=== PATIENT | male | born 1930 | race Caucasian/White ===

== ENCOUNTER 2018-04-25 17:18 | Inpatient (IN) | payer MEDICARE, OTHER ==
[~2018-04-25 17:18] MED LIST: ETOMIDATE 20 MG INJ; ROCURONIUM 50 MG INJ
[2018-04-25] MEDS: ASPIRIN 325 MG TAB PO (17:29)
[2018-04-25] MEDS: ONDANSETRON 4 MG INJ IV ×2 (17:36→17:49)
[2018-04-25 17:39] LABS: ADD MAN DIFF? NO
[2018-04-25 17:40] LABS: Allen Test ACCEPTAB; Arterial Base Excess 3.7 mmol/L (-3.0-3); Arterial Blood Gas Oxygen Sat 91.9 mmHG (95.0-100.0); Arterial COHb 2.2 % (0.0-3.0); Arterial Fraction of Oxyhgb 89.6 % (93.0-99.0); Arterial HCO3 31.5 mmol/L (22.0-26.0); Arterial MetHb 0.3 % (0.0-1.5); Arterial Total Hemglobin 14.7 g/dl (12.0-18.0); Arterial pCO2 60.9 mmhg (35-45); MODE MASK - NRB; Site Right Radial
[2018-04-25 17:42] LABS: WHITE BLOOD COUNT 8.2 10^3/ul (4.8-10.8)
[2018-04-25 17:42] LABS: BASOPHIL # 0.1 10^3/ul (0.0-0.1); BASOPHILS % 1.1 % (0.0-2.0); EOSINOPHILS # 0.1 10^3/ul (0.0-0.5); HEMOGLOBIN 13.7 g/dl (14.0-18.0); LYMPHOCYTES # 1.4 10^3/ul (0.8-2.9); LYMPHOCYTES % 17.5 % (15.0-51.0); MEAN CORPUSCULAR HEMOGLOBIN 28.8 pg (29.0-33.0); MEAN CORPUSCULAR HGB CONC 31.1 g/dl (32.0-37.0); MEAN CORPUSCULAR VOLUME 92.4 fl (82.0-101.0); MEAN PLATELET VOLUME 10.8 fl (7.4-10.4); MONOCYTE # 0.8 10^3/ul (0.3-0.9); MONOCYTES % 10.3 % (0.0-11.0); NEUTROPHIL # 5.7 10^3/ul (1.6-7.5); NEUTROPHILS % 69.7 % (39.0-77.0); PLATELET COUNT 200 10^3/UL (140-415); RED BLOOD COUNT 4.76 10^6/ul (4.70-6.10); RED CELL DISTRIBUTION WIDTH 19.8 % (11.5-14.5)
[2018-04-25 17:49] LABS: ANION GAP 16 (8-16); BLOOD UREA NITROGEN 29 mg/dl (7-20); CALCIUM 9.3 mg/dl (8.4-10.2); CARBON DIOXIDE 30 mmol/L (21-31); CHLORIDE 100 mmol/L (97-110); CREATININE 1.27 mg/dl (0.61-1.24); GLUCOSE 131 mg/dl (70-220); POTASSIUM 4.8 mmol/L (3.5-5.1); SODIUM 141 mmol/L (135-144)
[2018-04-25] MEDS: SOD CHLORIDE 0.9% 500 ML IV (17:49)
[2018-04-25 18:01] LABS: B-TYPE NATRIURETIC PEPTIDE 5860 PG/ML (0-450); TROPONIN-I 0.057 ng/ml (0.000-0.120)
[2018-04-25 19:09] LABS: AADO2 Arterial 431.9 mmHg (7.0-24.0); Arterial Base Excess 1.6 mmol/L (-3.0-3); Arterial Blood Gas Oxygen Sat 85.5 mmHG (95.0-100.0); Arterial Fraction of Oxyhgb 83.6 % (93.0-99.0); Arterial HCO3 31.1 mmol/L (22.0-26.0); Arterial MetHb 0.2 % (0.0-1.5); Arterial Total Hemglobin 14.4 g/dl (12.0-18.0); Blood Gas IEPAP 15/5; MODE MASK - BIPAP; Site Right Brachial
[2018-04-25] MEDS: MIDAZOLAM (DRIP) 50 mg/50 mL 50 ML IV ×2 (20:14→22:25)
[2018-04-25] MEDS: FENTAnyl (DRIP) 1000 mcg/100mL 100 ML IV ×2 (20:32→22:25)
[2018-04-25 20:34] LABS: AADO2 Arterial 584.7 mmHg (7.0-24.0); Allen Test ACCEPTAB; Arterial Base Excess 4.5 mmol/L (-3.0-3); Arterial Blood Gas Oxygen Sat 96.9 mmHG (95.0-100.0); Arterial Fraction of Oxyhgb 94.7 % (93.0-99.0); Arterial HCO3 28.7 mmol/L (22.0-26.0); Arterial MetHb 0.3 % (0.0-1.5); Arterial Total Hemglobin 14.7 g/dl (12.0-18.0); Arterial pCO2 41.4 mmhg (35-45); Blood Gas Low PEEP Setting 0 cmH2O; MODE VENT - AC; Site Right Radial
[2018-04-25] MEDS ORDERED: DOCUSATE SODIUM 100 MG CAP PO (21:00)
[2018-04-25] MEDS ORDERED: VANCOMYCIN IV PER PHARMACY XX (21:00)
[2018-04-25] MEDS ORDERED: ALBUTEROL/IPRATROPIUM (NEB) 3 ML AMP NEB (21:00)
[2018-04-25] MEDS ORDERED: ACETAMINOPHEN 650MG/20.3ML CUP PO (21:00)
[2018-04-25] MEDS ORDERED: ONDANSETRON 4 MG INJ IV (21:00)
[2018-04-25] MEDS: NORepinephrine 8MG/250 ML (PMX 250 ML IV (22:08)
[2018-04-25] MEDS: PIPER-TAZO 3.375 GM IV (PMX) 100 ML IV (23:10)
[2018-04-25] MEDS: FUROSEMIDE 20 MG INJ IV (23:11)
[2018-04-25] MEDS: HEPARIN 5,000 UNIT/0.5 ML VIAL SC (23:20)
[2018-04-26 00:11] LABS: CREATINE KINASE 21 IU/L (23-200)
[2018-04-26 00:23] LABS: CK INDEX 19.5
[2018-04-26] MEDS: VANCOMYCIN 1.5 GM in SOD CHLORIDE 0.9% 250 ML IVPB (00:38)
[2018-04-26] MEDS: ALBUTEROL/IPRATROPIUM (NEB) 3 ML AMP NEB ×4 (00:56→14:20)
[2018-04-26 05:00] LABS: ADD MAN DIFF? NO
[2018-04-26] MEDS ORDERED: PENDING SANTYL ORDER FOR WOUND CARE XX (05:00)
[2018-04-26 05:02] LABS: BASOPHIL # 0.1 10^3/ul (0.0-0.1); BASOPHILS % 0.6 % (0.0-2.0); EOSINOPHILS # 0.1 10^3/ul (0.0-0.5); EOSINOPHILS % 1.6 % (0.0-7.0); HEMATOCRIT 41.8 % (42.0-52.0); HEMOGLOBIN 13.1 g/dl (14.0-18.0); LYMPHOCYTES # 1.4 10^3/ul (0.8-2.9); MEAN CORPUSCULAR HEMOGLOBIN 28.3 pg (29.0-33.0); MEAN CORPUSCULAR HGB CONC 31.3 g/dl (32.0-37.0); MEAN CORPUSCULAR VOLUME 90.3 fl (82.0-101.0); MEAN PLATELET VOLUME 10.6 fl (7.4-10.4); MONOCYTE # 0.8 10^3/ul (0.3-0.9); MONOCYTES % 10.5 % (0.0-11.0); NEUTROPHIL # 5.5 10^3/ul (1.6-7.5); NEUTROPHILS % 69.1 % (39.0-77.0); PLATELET COUNT 202 10^3/UL (140-415); RED BLOOD COUNT 4.63 10^6/ul (4.70-6.10); RED CELL DISTRIBUTION WIDTH 19.7 % (11.5-14.5)
[2018-04-26 05:28] LABS: CREATINE KINASE 20 IU/L (23-200)
[2018-04-26 05:30] LABS: ALANINE AMINOTRANSFERASE 28 IU/L (13-69); ALBUMIN 2.5 g/dl (3.3-4.9); ALBUMIN/GLOBULIN RATIO 0.73; ALKALINE PHOSPHATASE 85 IU/L (42-121); ANION GAP 12 (8-16); ASPARTATE AMINO TRANSFERASE 34 IU/L (15-46); BILIRUBIN,INDIRECT 0.6 mg/dl (0-1.1); BILIRUBIN,TOTAL 0.6 mg/dl (0.2-1.3); BLOOD UREA NITROGEN 29 mg/dl (7-20); CALCIUM 8.9 mg/dl (8.4-10.2); CARBON DIOXIDE 32 mmol/L (21-31); CHLORIDE 101 mmol/L (97-110); CREATININE 1.12 mg/dl (0.61-1.24); GLUCOSE 108 mg/dl (70-220); POTASSIUM 4.6 mmol/L (3.5-5.1); SODIUM 140 mmol/L (135-144); TOTAL PROTEIN 5.9 g/dl (6.1-8.1)
[2018-04-26] MEDS: PIPER-TAZO 3.375 GM IV (PMX) 100 ML IV ×4 (05:31→18:55)
[2018-04-26] MEDS: PANTOPRAZOLE 40 MG INJ IV (05:31)
[2018-04-26 05:38] LABS: LACTIC ACID 2.4 mmol/L (0.5-2.0)
[2018-04-26 05:38] LABS: CK INDEX 21.2; CK-MB 4.24 ng/ml (0.0-2.4)
[2018-04-26 05:39] LABS: TROPONIN-I 0.432 ng/ml (0.000-0.120)
[2018-04-26 05:53] LABS: ADD UMIC YES; UR ASCORBIC ACID 40 mg/dL (NEGATIVE); UR BACTERIA FEW /HPF (NONE SEEN); UR BILIRUBIN (Dip) NEGATIVE (NEGATIVE); UR BLOOD (Dip) 3+ mg/dL (NEGATIVE); UR CALCIUM OXALATE CRYSTAL FEW /HPF (NONE SEEN); UR CLARITY CLOUDY (CLEAR); UR COLOR AMBER (YELLOW); UR GLUCOSE (Dip) NEGATIVE (NEGATIVE); UR HYALINE CAST FEW /HPF (NONE SEEN); UR KETONES (Dip) NEGATIVE (NEGATIVE); UR LEUKOCYTE ESTERASE (Dip) NEGATIVE Leu/ul (NEGATIVE); UR MUCUS FEW /HPF (NONE SEEN); UR NITRITE (Dip) NEGATIVE (NEGATIVE); UR RBC > 182 /HPF (0-5); UR SPECIFIC GRAVITY (Dip) 1.013 (1.003-1.030); UR TOTAL PROTEIN (Dip) 1+ mg/dl (NEGATIVE); UR UROBILINOGEN (Dip) 1+ mg/dL (NEGATIVE); UR WBC 1 /HPF (0-5)
[2018-04-26 07:27] LABS: AADO2 Arterial 464.8 mmHg (7.0-24.0); Allen Test ACCEPTAB; Arterial Base Excess 5.8 mmol/L (-3.0-3); Arterial Blood Gas Oxygen Sat 90.1 mmHG (95.0-100.0); Arterial COHb 1.4 % (0.0-3.0); Arterial Fraction of Oxyhgb 88.7 % (93.0-99.0); Arterial HCO3 30.4 mmol/L (22.0-26.0); Arterial MetHb 0.2 % (0.0-1.5); Arterial Total Hemglobin 14.3 g/dl (12.0-18.0); Arterial pCO2 44.3 mmhg (35-45); MODE VENT - AC; Site Right Radial
[2018-04-26 08:50] LABS: MAGNESIUM 1.9 mg/dl (1.7-2.5)
[2018-04-26 08:50] LABS: PHOSPHORUS 4.5 mg/dl (2.5-4.9)
[2018-04-26] MEDS: ASPIRIN 325 MG TAB PO (09:18)
[2018-04-26] MEDS: HEPARIN 5,000 UNIT/0.5 ML VIAL SC ×2 (09:21→21:00)
[2018-04-26] MEDS: FUROSEMIDE 20 MG INJ IV ×2 (09:34→21:06)
[2018-04-26] MEDS: LIDOCAINE 1% (MPF) 5 ML VIAL SC (18:34)
[2018-04-26] MEDS: NORepinephrine 8MG/250 ML (PMX 250 ML IV (19:02)
[2018-04-26] MEDS: MIDAZOLAM (DRIP) 50 mg/50 mL 50 ML IV (19:02)
[2018-04-26] MEDS: ALBUTEROL HFA 8 GM INHALER INH (21:30)
[2018-04-26] MEDS: IPRATROPIUM (HFA) 12.9 GM INHALER INH (21:30)
[2018-04-26] MEDS ORDERED: VANCOMYCIN 1 GM 250 ML IVPB (23:00)
[2018-04-26] MEDS: VANCOMYCIN 1.25 GM in SOD CHLORIDE 0.9% 250 ML IVPB (23:13)
[2018-04-27] MEDS: PIPER-TAZO 3.375 GM IV (PMX) 100 ML IV ×4 (00:18→18:08)
[2018-04-27] MEDS: IPRATROPIUM (HFA) 12.9 GM INHALER INH ×5 (01:31→19:28)
[2018-04-27] MEDS: ALBUTEROL HFA 8 GM INHALER INH ×5 (01:31→19:28)
[2018-04-27] MEDS: PANTOPRAZOLE 40 MG INJ IV (05:45)
[2018-04-27 05:49] LABS: ADD MAN DIFF? NO
[2018-04-27 06:03] LABS: BASOPHIL # 0.1 10^3/ul (0.0-0.1); BASOPHILS % 1.4 % (0.0-2.0); EOSINOPHILS # 0.2 10^3/ul (0.0-0.5); HEMATOCRIT 40.2 % (42.0-52.0); HEMOGLOBIN 12.9 g/dl (14.0-18.0); LYMPHOCYTES # 0.8 10^3/ul (0.8-2.9); LYMPHOCYTES % 9.3 % (15.0-51.0); MEAN CORPUSCULAR HEMOGLOBIN 27.9 pg (29.0-33.0); MEAN CORPUSCULAR HGB CONC 32.1 g/dl (32.0-37.0); MEAN PLATELET VOLUME 10.8 fl (7.4-10.4); MONOCYTE # 0.9 10^3/ul (0.3-0.9); MONOCYTES % 10.7 % (0.0-11.0); NEUTROPHIL # 6.6 10^3/ul (1.6-7.5); NEUTROPHILS % 76.4 % (39.0-77.0); PLATELET COUNT 192 10^3/UL (140-415); RED BLOOD COUNT 4.62 10^6/ul (4.70-6.10); RED CELL DISTRIBUTION WIDTH 19.9 % (11.5-14.5)
[2018-04-27 06:03] LABS: WHITE BLOOD COUNT 8.6 10^3/ul (4.8-10.8)
[2018-04-27 06:17] LABS: INR 1.34; PROTIME 16.8 Sec (11.9-14.9); PT RATIO 1.3
[2018-04-27] MEDS: FENTAnyl (DRIP) 1000 mcg/100mL 100 ML IV (06:24)
[2018-04-27 06:32] LABS: LACTIC ACID 1.8 mmol/L (0.5-2.0)
[2018-04-27 06:34] LABS: CREATINE KINASE 25 IU/L (23-200)
[2018-04-27 06:36] LABS: ALANINE AMINOTRANSFERASE 29 IU/L (13-69); ALBUMIN 2.4 g/dl (3.3-4.9); ALKALINE PHOSPHATASE 77 IU/L (42-121); ANION GAP 11 (8-16); ASPARTATE AMINO TRANSFERASE 28 IU/L (15-46); B-TYPE NATRIURETIC PEPTIDE 4390 PG/ML (0-450); BILIRUBIN,INDIRECT 0.7 mg/dl (0-1.1); BILIRUBIN,TOTAL 0.7 mg/dl (0.2-1.3); BLOOD UREA NITROGEN 25 mg/dl (7-20); CALCIUM 8.7 mg/dl (8.4-10.2); CARBON DIOXIDE 35 mmol/L (21-31); CHLORIDE 101 mmol/L (97-110); CHOL/HDL RATIO 3.5 RATIO; CHOLESTEROL 91 mg/dl (100-200); GLUCOSE 92 mg/dl (70-220); HDL CHOLESTEROL 26 mg/dl (31-75); LDL CHOLESTEROL,CALCULATED 53 mg/dl; MAGNESIUM 1.8 mg/dl (1.7-2.5); POTASSIUM 3.7 mmol/L (3.5-5.1); SODIUM 143 mmol/L (135-144); TOTAL PROTEIN 5.8 g/dl (6.1-8.1); TRIGLYCERIDES 62 mg/dl (0-149)
[2018-04-27 06:47] LABS: CK INDEX 9.4; CK-MB 2.34 ng/ml (0.0-2.4)
[2018-04-27 06:52] LABS: TROPONIN-I 0.453 ng/ml (0.000-0.120)
[2018-04-27 07:29] LABS: FREE T4 (FREE THYROXINE) 1.75 ng/dl (0.85-1.93)
[2018-04-27] MEDS: HEPARIN 5,000 UNIT/0.5 ML VIAL SC ×2 (08:15→21:00)
[2018-04-27] MEDS: POTASSIUM CHLORIDE 20 MEQ POWDER FOR ORAL SOLN NGT (08:19)
[2018-04-27] MEDS: ASPIRIN 325 MG TAB PO ×2 (08:19→09:43)
[2018-04-27] MEDS: MAGNESIUM SULFATE 2 GM/50 ML 50 ML IVPB (08:19)
[2018-04-27] MEDS: FUROSEMIDE 20 MG INJ IV ×2 (08:19→21:05)
[2018-04-27 09:08] LABS: AADO2 Arterial 233.9 mmHg (7.0-24.0); Arterial Base Excess 7.5 mmol/L (-3.0-3); Arterial Blood Gas Oxygen Sat 94.7 mmHG (95.0-100.0); Arterial COHb 1.4 % (0.0-3.0); Arterial Fraction of Oxyhgb 93.2 % (93.0-99.0); Arterial HCO3 32.2 mmol/L (22.0-26.0); Arterial MetHb 0.2 % (0.0-1.5); Arterial Total Hemglobin 14.3 g/dl (12.0-18.0); MODE VENT - AC; Site Right Brachial
[2018-04-27] MEDS: LIDOCAINE 1% (MPF) 5 ML VIAL (09:45)
[2018-04-27] MEDS: NORepinephrine 8MG/250 ML (PMX 250 ML IV ×2 (10:20→23:51)
[2018-04-27 10:28] LABS: FLD MN% 95.2 %; FLD PMN% 4.8 %; FLD RBC 0 /uL; FLD WBC 188 /cmm
[2018-04-27 10:38] LABS: FLUID GLUCOSE 106 mg/dl
[2018-04-27 10:39] LABS: FLUID LD 272 U/L; FLUID TOTAL PROTEIN 2.4 g/dl; FLUID TYPE THORACENTESIS FLUID
[2018-04-27 13:22] LABS: FLD CLARITY SLIGHTLY HAZY; FLD COLOR YELLOW
[2018-04-27 13:22] LABS: FLD TYPE THORACENTHESIS
[2018-04-27] MEDS: MIDAZOLAM (DRIP) 50 mg/50 mL 50 ML IV (17:59)
[2018-04-27] MEDS: MUPIROCIN 2% 22 GM OINT TOP (22:32)
[2018-04-27] MEDS: VANCOMYCIN 1.25 GM in SOD CHLORIDE 0.9% 250 ML IVPB (22:34)
[2018-04-28] MEDS: IPRATROPIUM (HFA) 12.9 GM INHALER INH ×4 (01:05→20:12)
[2018-04-28] MEDS: ALBUTEROL HFA 8 GM INHALER INH ×4 (01:05→20:12)
[2018-04-28] MEDS: PIPER-TAZO 3.375 GM IV (PMX) 100 ML IV ×4 (02:33→17:17)
[2018-04-28] MEDS: PANTOPRAZOLE 40 MG INJ IV (05:40)
[2018-04-28 05:41] LABS: WHITE BLOOD COUNT 8.6 10^3/ul (4.8-10.8)
[2018-04-28 05:41] LABS: ADD MAN DIFF? NO; BASOPHIL # 0.1 10^3/ul (0.0-0.1); BASOPHILS % 0.8 % (0.0-2.0); EOSINOPHILS # 0.1 10^3/ul (0.0-0.5); EOSINOPHILS % 0.6 % (0.0-7.0); HEMATOCRIT 41.1 % (42.0-52.0); HEMOGLOBIN 12.9 g/dl (14.0-18.0); LYMPHOCYTES # 0.7 10^3/ul (0.8-2.9); LYMPHOCYTES % 8.4 % (15.0-51.0); MEAN CORPUSCULAR HEMOGLOBIN 27.9 pg (29.0-33.0); MEAN CORPUSCULAR HGB CONC 31.4 g/dl (32.0-37.0); MEAN PLATELET VOLUME 10.5 fl (7.4-10.4); MONOCYTES % 11.1 % (0.0-11.0); NEUTROPHIL # 6.8 10^3/ul (1.6-7.5); PLATELET COUNT 190 10^3/UL (140-415); RED BLOOD COUNT 4.62 10^6/ul (4.70-6.10); RED CELL DISTRIBUTION WIDTH 19.4 % (11.5-14.5)
[2018-04-28 06:20] LABS: ALANINE AMINOTRANSFERASE 24 IU/L (13-69); ALBUMIN 2.5 g/dl (3.3-4.9); ALBUMIN/GLOBULIN RATIO 0.69; ALKALINE PHOSPHATASE 86 IU/L (42-121); ANION GAP 6 (8-16); ASPARTATE AMINO TRANSFERASE 25 IU/L (15-46); B-TYPE NATRIURETIC PEPTIDE 3510 PG/ML (0-450); BILIRUBIN,INDIRECT 0.5 mg/dl (0-1.1); BILIRUBIN,TOTAL 0.5 mg/dl (0.2-1.3); BLOOD UREA NITROGEN 24 mg/dl (7-20); CALCIUM 8.6 mg/dl (8.4-10.2); CARBON DIOXIDE 39 mmol/L (21-31); CHLORIDE 102 mmol/L (97-110); CREATININE 1.04 mg/dl (0.61-1.24); GLUCOSE 125 mg/dl (70-220); MAGNESIUM 2.3 mg/dl (1.7-2.5); POTASSIUM 3.4 mmol/L (3.5-5.1); SODIUM 144 mmol/L (135-144); TOTAL PROTEIN 6.1 g/dl (6.1-8.1)
[2018-04-28] MEDS: HEPARIN 5,000 UNIT/0.5 ML VIAL SC ×2 (09:00→21:00)
[2018-04-28] MEDS: ASPIRIN 325 MG TAB PO (09:26)
[2018-04-28] MEDS: FUROSEMIDE 20 MG INJ IV ×2 (09:26→20:57)
[2018-04-28] MEDS: MUPIROCIN 2% 22 GM OINT TOP ×2 (09:27→21:02)
[2018-04-28] MEDS: LIDOCAINE 1% (MPF) 5 ML VIAL (11:02)
[2018-04-28] MEDS: POTASSIUM CHLORIDE 20 MEQ POWDER FOR ORAL SOLN GTB (17:18)
[2018-04-28] MEDS: FENTAnyl (DRIP) 1000 mcg/100mL 100 ML IV (17:45)
[2018-04-28 22:43] LABS: VANCOMYCIN,TROUGH 14.7 ug/ml (10.0-20.0)
[2018-04-28] MEDS: VANCOMYCIN 1.25 GM in SOD CHLORIDE 0.9% 250 ML IVPB (22:51)
[2018-04-29] MEDS: PIPER-TAZO 3.375 GM IV (PMX) 100 ML IV ×4 (00:26→18:07)
[2018-04-29] MEDS: IPRATROPIUM (HFA) 12.9 GM INHALER INH ×4 (01:49→19:25)
[2018-04-29] MEDS: ALBUTEROL HFA 8 GM INHALER INH ×4 (01:49→19:25)
[2018-04-29 05:41] LABS: ADD MAN DIFF? NO
[2018-04-29 05:44] LABS: BASOPHIL # 0.1 10^3/ul (0.0-0.1); BASOPHILS % 0.8 % (0.0-2.0); EOSINOPHILS # 0.1 10^3/ul (0.0-0.5); EOSINOPHILS % 1.7 % (0.0-7.0); HEMATOCRIT 38.8 % (42.0-52.0); HEMOGLOBIN 12.2 g/dl (14.0-18.0); LYMPHOCYTES # 0.8 10^3/ul (0.8-2.9); LYMPHOCYTES % 10.6 % (15.0-51.0); MEAN CORPUSCULAR HGB CONC 31.4 g/dl (32.0-37.0); MONOCYTES % 13.4 % (0.0-11.0); NEUTROPHIL # 5.5 10^3/ul (1.6-7.5); NEUTROPHILS % 73.2 % (39.0-77.0); PLATELET COUNT 164 10^3/UL (140-415); RED BLOOD COUNT 4.36 10^6/ul (4.70-6.10); RED CELL DISTRIBUTION WIDTH 19.7 % (11.5-14.5)
[2018-04-29 05:44] LABS: WHITE BLOOD COUNT 7.5 10^3/ul (4.8-10.8)
[2018-04-29 06:05] LABS: MAGNESIUM 2.2 mg/dl (1.7-2.5)
[2018-04-29 06:05] LABS: PHOSPHORUS 2.9 mg/dl (2.5-4.9)
[2018-04-29 06:10] LABS: ALANINE AMINOTRANSFERASE 21 IU/L (13-69); ALBUMIN 2.4 g/dl (3.3-4.9); ALKALINE PHOSPHATASE 85 IU/L (42-121); ANION GAP 7 (8-16); ASPARTATE AMINO TRANSFERASE 26 IU/L (15-46); BILIRUBIN,INDIRECT 0.8 mg/dl (0-1.1); BILIRUBIN,TOTAL 0.8 mg/dl (0.2-1.3); BLOOD UREA NITROGEN 23 mg/dl (7-20); CALCIUM 8.7 mg/dl (8.4-10.2); CARBON DIOXIDE 39 mmol/L (21-31); CHLORIDE 103 mmol/L (97-110); CREATININE 0.99 mg/dl (0.61-1.24); GLUCOSE 136 mg/dl (70-220); POTASSIUM 3.7 mmol/L (3.5-5.1); SODIUM 145 mmol/L (135-144); TOTAL PROTEIN 5.8 g/dl (6.1-8.1)
[2018-04-29] MEDS: PANTOPRAZOLE 40 MG INJ IV (06:11)
[2018-04-29] MEDS: ASPIRIN 325 MG TAB PO (08:40)
[2018-04-29] MEDS: FUROSEMIDE 20 MG INJ IV ×2 (08:40→21:10)
[2018-04-29] MEDS: MUPIROCIN 2% 22 GM OINT TOP ×2 (08:41→21:12)
[2018-04-29] MEDS: HEPARIN 5,000 UNIT/0.5 ML VIAL SC ×2 (08:45→21:11)
[2018-04-29] MEDS: VANCOMYCIN 1.25 GM in SOD CHLORIDE 0.9% 250 ML IVPB (23:11)
[2018-04-30] MEDS: PIPER-TAZO 3.375 GM IV (PMX) 100 ML IV ×4 (00:10→18:15)
[2018-04-30] MEDS: ALBUTEROL HFA 8 GM INHALER INH ×4 (01:15→20:04)
[2018-04-30] MEDS: IPRATROPIUM (HFA) 12.9 GM INHALER INH ×4 (01:15→20:05)
[2018-04-30 05:10] LABS: ADD MAN DIFF? NO
[2018-04-30 05:13] LABS: WHITE BLOOD COUNT 8.7 10^3/ul (4.8-10.8)
[2018-04-30 05:13] LABS: BASOPHIL # 0.1 10^3/ul (0.0-0.1); BASOPHILS % 1.2 % (0.0-2.0); EOSINOPHILS # 0.2 10^3/ul (0.0-0.5); EOSINOPHILS % 2.2 % (0.0-7.0); HEMATOCRIT 39.8 % (42.0-52.0); HEMOGLOBIN 12.2 g/dl (14.0-18.0); LYMPHOCYTES # 0.9 10^3/ul (0.8-2.9); LYMPHOCYTES % 9.8 % (15.0-51.0); MEAN CORPUSCULAR HEMOGLOBIN 27.9 pg (29.0-33.0); MEAN CORPUSCULAR HGB CONC 30.7 g/dl (32.0-37.0); MEAN CORPUSCULAR VOLUME 90.9 fl (82.0-101.0); MONOCYTE # 1.3 10^3/ul (0.3-0.9); MONOCYTES % 15.4 % (0.0-11.0); NEUTROPHIL # 6.2 10^3/ul (1.6-7.5); NEUTROPHILS % 71.2 % (39.0-77.0); PLATELET COUNT 166 10^3/UL (140-415); RED BLOOD COUNT 4.38 10^6/ul (4.70-6.10); RED CELL DISTRIBUTION WIDTH 19.9 % (11.5-14.5)
[2018-04-30 05:14] LABS: AADO2 Arterial 104.7 mmHg (7.0-24.0); Allen Test ACCEPTAB; Arterial Base Excess 14.6 mmol/L (-3.0-3); Arterial Blood Gas Oxygen Sat 97.9 mmHG (95.0-100.0); Arterial Fraction of Oxyhgb 95.6 % (93.0-99.0); Arterial HCO3 42.4 mmol/L (22.0-26.0); Arterial MetHb 0.3 % (0.0-1.5); Arterial Total Hemglobin 13.7 g/dl (12.0-18.0); Arterial pCO2 67.4 mmhg (35-45); MODE VENT - AC; Site Right Radial
[2018-04-30 05:38] LABS: BLOOD UREA NITROGEN 24 mg/dl (7-20); CALCIUM 8.9 mg/dl (8.4-10.2); CHLORIDE 100 mmol/L (97-110); GLUCOSE 135 mg/dl (70-220); POTASSIUM 3.4 mmol/L (3.5-5.1); SODIUM 146 mmol/L (135-144)
[2018-04-30 05:57] LABS: ANION GAP 7 (8-16)
[2018-04-30 05:58] LABS: CARBON DIOXIDE 42 mmol/L (21-31)
[2018-04-30] MEDS: PANTOPRAZOLE 40 MG INJ IV (06:10)
[2018-04-30] MEDS: ASPIRIN 325 MG TAB PO (08:24)
[2018-04-30] MEDS: FUROSEMIDE 20 MG INJ IV (08:24)
[2018-04-30] MEDS: HEPARIN 5,000 UNIT/0.5 ML VIAL SC ×2 (08:41→21:01)
[2018-04-30] MEDS: MUPIROCIN 2% 22 GM OINT TOP ×2 (08:42→20:59)
[2018-04-30] MEDS: VITAMIN A & D 5 GM OINT PACKET TOP (18:20)
[2018-04-30] MEDS: FENTAnyl (DRIP) 1000 mcg/100mL 100 ML IV (18:25)
[2018-04-30] MEDS ORDERED: VITAMIN A & D 5 GM OINT PACKET TOP (18:30)
[2018-04-30] MEDS: LORAZEPAM 2 MG INJ IV (22:30)
[2018-04-30] MEDS: VANCOMYCIN 1.25 GM in SOD CHLORIDE 0.9% 250 ML IVPB (22:53)
[2018-05-01] MEDS: PIPER-TAZO 3.375 GM IV (PMX) 100 ML IV ×5 (00:02→23:51)
[2018-05-01] MEDS: IPRATROPIUM (HFA) 12.9 GM INHALER INH ×4 (01:27→19:31)
[2018-05-01] MEDS: ALBUTEROL HFA 8 GM INHALER INH ×4 (01:28→19:31)
[2018-05-01 05:06] LABS: ADD MAN DIFF? NO
[2018-05-01 05:07] LABS: AADO2 Arterial 111.4 mmHg (7.0-24.0); Allen Test ACCEPTAB; Arterial Base Excess 11.9 mmol/L (-3.0-3); Arterial Blood Gas Oxygen Sat 98.5 mmHG (95.0-100.0); Arterial COHb 2.3 % (0.0-3.0); Arterial Fraction of Oxyhgb 95.9 % (93.0-99.0); Arterial HCO3 38.6 mmol/L (22.0-26.0); Arterial MetHb 0.3 % (0.0-1.5); Arterial Total Hemglobin 13.8 g/dl (12.0-18.0); Arterial pCO2 58.6 mmhg (35-45); MODE VENT - AC; Site Right Radial
[2018-05-01 05:16] LABS: BASOPHIL # 0.1 10^3/ul (0.0-0.1); BASOPHILS % 1.1 % (0.0-2.0); EOSINOPHILS # 0.2 10^3/ul (0.0-0.5); EOSINOPHILS % 2.7 % (0.0-7.0); HEMATOCRIT 39.6 % (42.0-52.0); LYMPHOCYTES # 0.8 10^3/ul (0.8-2.9); LYMPHOCYTES % 10.5 % (15.0-51.0); MEAN CORPUSCULAR HEMOGLOBIN 27.6 pg (29.0-33.0); MEAN CORPUSCULAR HGB CONC 30.3 g/dl (32.0-37.0); MEAN CORPUSCULAR VOLUME 91.2 fl (82.0-101.0); MEAN PLATELET VOLUME 10.8 fl (7.4-10.4); MONOCYTE # 1.1 10^3/ul (0.3-0.9); MONOCYTES % 14.5 % (0.0-11.0); NEUTROPHIL # 5.3 10^3/ul (1.6-7.5); NEUTROPHILS % 70.9 % (39.0-77.0); PLATELET COUNT 182 10^3/UL (140-415); RED BLOOD COUNT 4.34 10^6/ul (4.70-6.10); RED CELL DISTRIBUTION WIDTH 19.4 % (11.5-14.5)
[2018-05-01 05:16] LABS: WHITE BLOOD COUNT 7.5 10^3/ul (4.8-10.8)
[2018-05-01 05:36] LABS: BLOOD UREA NITROGEN 27 mg/dl (7-20); CALCIUM 9.1 mg/dl (8.4-10.2); CHLORIDE 102 mmol/L (97-110); CREATININE 0.86 mg/dl (0.61-1.24); GLUCOSE 129 mg/dl (70-220); POTASSIUM 3.7 mmol/L (3.5-5.1); SODIUM 145 mmol/L (135-144)
[2018-05-01 05:38] LABS: LACTIC ACID 1.1 mmol/L (0.5-2.0)
[2018-05-01] MEDS: PANTOPRAZOLE 40 MG INJ IV (05:45)
[2018-05-01 05:51] LABS: ANION GAP 6 (8-16); CARBON DIOXIDE 41 mmol/L (21-31)
[2018-05-01] MEDS: VITAMIN A & D 5 GM OINT PACKET TOP (08:51)
[2018-05-01] MEDS: MUPIROCIN 2% 22 GM OINT TOP ×2 (08:51→20:33)
[2018-05-01] MEDS: ASPIRIN 325 MG TAB PO (08:51)
[2018-05-01] MEDS: HEPARIN 5,000 UNIT/0.5 ML VIAL SC (08:57)
[2018-05-01] MEDS: DEXMEDETOMIDINE HCL 200 MCG in SOD CHLORIDE 0.9% 48 ML IV ×3 (11:30→23:51)
[2018-05-01] MEDS: ENOXAPARIN 100 MG/ML SYG SC (15:02)
[2018-05-01] MEDS: DIGOXIN 500 MCG INJ IV (15:03)
[2018-05-01] MEDS: COLLAGENASE 5 GM (UD JAR) TOP (15:12)
[2018-05-01] MEDS: BALSAM PERU/CASTOR OIL 60 GM TUBE TOP (20:33)
[2018-05-01] MEDS: VANCOMYCIN 1.25 GM in SOD CHLORIDE 0.9% 250 ML IVPB (23:51)
[2018-05-02] MEDS: ALBUTEROL HFA 8 GM INHALER INH ×4 (01:15→19:46)
[2018-05-02] MEDS: IPRATROPIUM (HFA) 12.9 GM INHALER INH ×4 (01:15→19:46)
[2018-05-02] MEDS: PANTOPRAZOLE 40 MG INJ IV (05:19)
[2018-05-02] MEDS: PIPER-TAZO 3.375 GM IV (PMX) 100 ML IV ×3 (05:19→17:18)
[2018-05-02] MEDS: DEXMEDETOMIDINE HCL 200 MCG in SOD CHLORIDE 0.9% 48 ML IV ×2 (05:29→17:19)
[2018-05-02 06:02] LABS: ADD MAN DIFF? NO
[2018-05-02 06:13] LABS: WHITE BLOOD COUNT 8.3 10^3/ul (4.8-10.8)
[2018-05-02 06:13] LABS: BASOPHIL # 0.2 10^3/ul (0.0-0.1); BASOPHILS % 1.8 % (0.0-2.0); EOSINOPHILS # 0.3 10^3/ul (0.0-0.5); HEMOGLOBIN 13.1 g/dl (14.0-18.0); LYMPHOCYTES # 1.2 10^3/ul (0.8-2.9); LYMPHOCYTES % 14.7 % (15.0-51.0); MEAN CORPUSCULAR HEMOGLOBIN 27.6 pg (29.0-33.0); MEAN CORPUSCULAR HGB CONC 30.5 g/dl (32.0-37.0); MEAN CORPUSCULAR VOLUME 90.7 fl (82.0-101.0); MEAN PLATELET VOLUME 10.9 fl (7.4-10.4); MONOCYTE # 1.3 10^3/ul (0.3-0.9); NEUTROPHIL # 5.4 10^3/ul (1.6-7.5); NEUTROPHILS % 65.1 % (39.0-77.0); PLATELET COUNT 203 10^3/UL (140-415); RED BLOOD COUNT 4.74 10^6/ul (4.70-6.10); RED CELL DISTRIBUTION WIDTH 19.3 % (11.5-14.5)
[2018-05-02 06:31] LABS: BLOOD UREA NITROGEN 29 mg/dl (7-20); CALCIUM 9.1 mg/dl (8.4-10.2); CHLORIDE 100 mmol/L (97-110); GLUCOSE 98 mg/dl (70-220); MAGNESIUM 2.4 mg/dl (1.7-2.5); PHOSPHORUS 2.8 mg/dl (2.5-4.9); POTASSIUM 4.3 mmol/L (3.5-5.1); SODIUM 144 mmol/L (135-144)
[2018-05-02 07:17] LABS: ANION GAP 8 (8-16); CARBON DIOXIDE 40 mmol/L (21-31)
[2018-05-02] MEDS: COLLAGENASE 5 GM (UD JAR) TOP (08:32)
[2018-05-02] MEDS: BALSAM PERU/CASTOR OIL 60 GM TUBE TOP ×2 (08:32→21:21)
[2018-05-02] MEDS: MUPIROCIN 2% 22 GM OINT TOP ×2 (08:32→21:21)
[2018-05-02] MEDS: VITAMIN A & D 5 GM OINT PACKET TOP (08:32)
[2018-05-02] MEDS: ASPIRIN 81 MG TAB PO (08:32)
[2018-05-02] MEDS: ENOXAPARIN 100 MG/ML SYG SC (14:55)
[2018-05-02 23:10] LABS: VANCOMYCIN,TROUGH 15.6 ug/ml (10.0-20.0)
[2018-05-02] MEDS: VANCOMYCIN 1.25 GM in SOD CHLORIDE 0.9% 250 ML IVPB (23:46)
[2018-05-03] MEDS: PIPER-TAZO 3.375 GM IV (PMX) 100 ML IV ×4 (00:51→17:51)
[2018-05-03] MEDS: IPRATROPIUM (HFA) 12.9 GM INHALER INH ×4 (01:12→19:13)
[2018-05-03] MEDS: ALBUTEROL HFA 8 GM INHALER INH ×4 (01:13→19:12)
[2018-05-03] MEDS: DEXMEDETOMIDINE HCL 200 MCG in SOD CHLORIDE 0.9% 48 ML IV (04:27)
[2018-05-03] MEDS: PANTOPRAZOLE 40 MG INJ IV (05:33)
[2018-05-03] MEDS: COLLAGENASE 5 GM (UD JAR) TOP (08:47)
[2018-05-03] MEDS: ASPIRIN 81 MG TAB PO (08:47)
[2018-05-03] MEDS: MUPIROCIN 2% 22 GM OINT TOP ×2 (08:47→20:31)
[2018-05-03] MEDS: BALSAM PERU/CASTOR OIL 60 GM TUBE TOP ×2 (08:47→20:31)
[2018-05-03] MEDS: VITAMIN A & D 5 GM OINT PACKET TOP (08:48)
[2018-05-03 09:27] LABS: ADD MAN DIFF? NO
[2018-05-03 09:35] LABS: BASOPHIL # 0.1 10^3/ul (0.0-0.1); BASOPHILS % 1.4 % (0.0-2.0); EOSINOPHILS # 0.2 10^3/ul (0.0-0.5); HEMATOCRIT 40.5 % (42.0-52.0); HEMOGLOBIN 12.4 g/dl (14.0-18.0); LYMPHOCYTES # 1.1 10^3/ul (0.8-2.9); LYMPHOCYTES % 14.7 % (15.0-51.0); MEAN CORPUSCULAR HEMOGLOBIN 28.1 pg (29.0-33.0); MEAN CORPUSCULAR HGB CONC 30.6 g/dl (32.0-37.0); MEAN CORPUSCULAR VOLUME 91.6 fl (82.0-101.0); MEAN PLATELET VOLUME 11.3 fl (7.4-10.4); MONOCYTE # 1.1 10^3/ul (0.3-0.9); MONOCYTES % 14.3 % (0.0-11.0); NEUTROPHIL # 5.2 10^3/ul (1.6-7.5); NEUTROPHILS % 67.3 % (39.0-77.0); PLATELET COUNT 205 10^3/UL (140-415); RED BLOOD COUNT 4.42 10^6/ul (4.70-6.10)
[2018-05-03 09:35] LABS: WHITE BLOOD COUNT 7.7 10^3/ul (4.8-10.8)
[2018-05-03 09:56] LABS: ALANINE AMINOTRANSFERASE 13 IU/L (13-69); ALBUMIN 2.3 g/dl (3.3-4.9); ALBUMIN/GLOBULIN RATIO 0.71; ALKALINE PHOSPHATASE 104 IU/L (42-121); ANION GAP 7 (8-16); ASPARTATE AMINO TRANSFERASE 30 IU/L (15-46); BILIRUBIN,INDIRECT 0.7 mg/dl (0-1.1); BILIRUBIN,TOTAL 0.7 mg/dl (0.2-1.3); BLOOD UREA NITROGEN 32 mg/dl (7-20); CALCIUM 8.9 mg/dl (8.4-10.2); CHLORIDE 104 mmol/L (97-110); CREATININE 0.84 mg/dl (0.61-1.24); GLUCOSE 116 mg/dl (70-220); MAGNESIUM 2.3 mg/dl (1.7-2.5); POTASSIUM 3.5 mmol/L (3.5-5.1); SODIUM 147 mmol/L (135-144); TOTAL PROTEIN 5.5 g/dl (6.1-8.1)
[2018-05-03 09:58] LABS: CARBON DIOXIDE 40 mmol/L (21-31)
[2018-05-03] MEDS: ENOXAPARIN 100 MG/ML SYG SC (13:30)
[2018-05-03] MEDS: MIDAZOLAM (DRIP) 50 mg/50 mL 50 ML IV (17:51)
[2018-05-03] MEDS: FENTAnyl (DRIP) 1000 mcg/100mL 100 ML IV (18:16)
[2018-05-03] MEDS: VANCOMYCIN 1.25 GM in SOD CHLORIDE 0.9% 250 ML IVPB (22:52)
[2018-05-04] MEDS: PIPER-TAZO 3.375 GM IV (PMX) 100 ML IV ×5 (00:45→23:45)
[2018-05-04] MEDS: ALBUTEROL HFA 8 GM INHALER INH ×4 (01:09→19:11)
[2018-05-04] MEDS: IPRATROPIUM (HFA) 12.9 GM INHALER INH ×4 (01:09→19:11)
[2018-05-04] MEDS: PANTOPRAZOLE 40 MG INJ IV (05:17)
[2018-05-04 05:28] LABS: ADD MAN DIFF? NO
[2018-05-04 05:30] LABS: BASOPHIL # 0.2 10^3/ul (0.0-0.1); BASOPHILS % 2.8 % (0.0-2.0); EOSINOPHILS # 0.3 10^3/ul (0.0-0.5); EOSINOPHILS % 5.2 % (0.0-7.0); HEMATOCRIT 38.4 % (42.0-52.0); HEMOGLOBIN 11.6 g/dl (14.0-18.0); LYMPHOCYTES # 1.1 10^3/ul (0.8-2.9); LYMPHOCYTES % 16.4 % (15.0-51.0); MEAN CORPUSCULAR HEMOGLOBIN 27.8 pg (29.0-33.0); MEAN CORPUSCULAR HGB CONC 30.2 g/dl (32.0-37.0); MEAN CORPUSCULAR VOLUME 91.9 fl (82.0-101.0); MEAN PLATELET VOLUME 11.8 fl (7.4-10.4); MONOCYTE # 0.8 10^3/ul (0.3-0.9); NEUTROPHILS % 62.3 % (39.0-77.0); PLATELET COUNT 214 10^3/UL (140-415); RED BLOOD COUNT 4.18 10^6/ul (4.70-6.10); RED CELL DISTRIBUTION WIDTH 19.3 % (11.5-14.5)
[2018-05-04 05:30] LABS: WHITE BLOOD COUNT 6.4 10^3/ul (4.8-10.8)
[2018-05-04 06:15] LABS: B-TYPE NATRIURETIC PEPTIDE 2980 PG/ML (0-450)
[2018-05-04 06:19] LABS: ALANINE AMINOTRANSFERASE 27 IU/L (13-69); ALBUMIN 2.2 g/dl (3.3-4.9); ALBUMIN/GLOBULIN RATIO 0.68; ALKALINE PHOSPHATASE 115 IU/L (42-121); ASPARTATE AMINO TRANSFERASE 32 IU/L (15-46); BILIRUBIN,INDIRECT 0.5 mg/dl (0-1.1); BILIRUBIN,TOTAL 0.5 mg/dl (0.2-1.3); BLOOD UREA NITROGEN 30 mg/dl (7-20); CALCIUM 8.7 mg/dl (8.4-10.2); CHLORIDE 104 mmol/L (97-110); CREATININE 0.83 mg/dl (0.61-1.24); GLUCOSE 112 mg/dl (70-220); MAGNESIUM 2.4 mg/dl (1.7-2.5); POTASSIUM 3.4 mmol/L (3.5-5.1); SODIUM 145 mmol/L (135-144); TOTAL PROTEIN 5.4 g/dl (6.1-8.1)
[2018-05-04 06:47] LABS: ANION GAP 4 (8-16)
[2018-05-04 06:49] LABS: CARBON DIOXIDE 40 mmol/L (21-31)
[2018-05-04] MEDS: ASPIRIN 81 MG TAB PO (08:31)
[2018-05-04] MEDS: MUPIROCIN 2% 22 GM OINT TOP ×2 (08:31→21:25)
[2018-05-04] MEDS: VITAMIN A & D 5 GM OINT PACKET TOP (08:31)
[2018-05-04] MEDS: COLLAGENASE 5 GM (UD JAR) TOP (08:32)
[2018-05-04] MEDS: BALSAM PERU/CASTOR OIL 60 GM TUBE TOP ×2 (08:32→21:26)
[2018-05-04] MEDS: POTASSIUM CHLORIDE 20 MEQ POWDER FOR ORAL SOLN NGT (08:38)
[2018-05-04] MEDS: ENOXAPARIN 100 MG/ML SYG SC (13:54)
[2018-05-04] MEDS: MIDAZOLAM (DRIP) 50 mg/50 mL 50 ML IV (18:30)
[2018-05-04] MEDS: VANCOMYCIN 1.25 GM in SOD CHLORIDE 0.9% 250 ML IVPB (23:19)
[2018-05-05] MEDS: IPRATROPIUM (HFA) 12.9 GM INHALER INH ×4 (01:24→19:48)
[2018-05-05] MEDS: ALBUTEROL HFA 8 GM INHALER INH ×4 (01:24→19:48)
[2018-05-05 05:22] LABS: ADD MAN DIFF? NO
[2018-05-05 05:24] LABS: BASOPHIL # 0.2 10^3/ul (0.0-0.1); BASOPHILS % 2.9 % (0.0-2.0); EOSINOPHILS # 0.2 10^3/ul (0.0-0.5); EOSINOPHILS % 3.3 % (0.0-7.0); HEMATOCRIT 39.8 % (42.0-52.0); HEMOGLOBIN 12.1 g/dl (14.0-18.0); LYMPHOCYTES # 1.2 10^3/ul (0.8-2.9); LYMPHOCYTES % 16.3 % (15.0-51.0); MEAN CORPUSCULAR HGB CONC 30.4 g/dl (32.0-37.0); MEAN CORPUSCULAR VOLUME 92.1 fl (82.0-101.0); MEAN PLATELET VOLUME 12.1 fl (7.4-10.4); MONOCYTE # 0.8 10^3/ul (0.3-0.9); MONOCYTES % 11.5 % (0.0-11.0); NEUTROPHIL # 4.7 10^3/ul (1.6-7.5); NEUTROPHILS % 65.7 % (39.0-77.0); PLATELET COUNT 230 10^3/UL (140-415); RED BLOOD COUNT 4.32 10^6/ul (4.70-6.10); RED CELL DISTRIBUTION WIDTH 19.5 % (11.5-14.5)
[2018-05-05 05:24] LABS: WHITE BLOOD COUNT 7.2 10^3/ul (4.8-10.8)
[2018-05-05 06:06] LABS: ALANINE AMINOTRANSFERASE 23 IU/L (13-69); ALBUMIN 2.2 g/dl (3.3-4.9); ALBUMIN/GLOBULIN RATIO 0.64; ALKALINE PHOSPHATASE 81 IU/L (42-121); ASPARTATE AMINO TRANSFERASE 32 IU/L (15-46); BILIRUBIN,INDIRECT 0.4 mg/dl (0-1.1); BILIRUBIN,TOTAL 0.4 mg/dl (0.2-1.3); BLOOD UREA NITROGEN 30 mg/dl (7-20); CALCIUM 8.9 mg/dl (8.4-10.2); CHLORIDE 103 mmol/L (97-110); CREATININE 0.88 mg/dl (0.61-1.24); GLUCOSE 190 mg/dl (70-220); POTASSIUM 4.1 mmol/L (3.5-5.1); SODIUM 146 mmol/L (135-144); TOTAL PROTEIN 5.6 g/dl (6.1-8.1)
[2018-05-05 06:12] LABS: ANION GAP 7 (8-16)
[2018-05-05] MEDS: PIPER-TAZO 3.375 GM IV (PMX) 100 ML IV ×3 (06:15→17:18)
[2018-05-05] MEDS: PANTOPRAZOLE 40 MG INJ IV (06:17)
[2018-05-05 06:22] LABS: CARBON DIOXIDE 40 mmol/L (21-31)
[2018-05-05] MEDS: ASPIRIN 81 MG TAB PO (08:59)
[2018-05-05] MEDS: MUPIROCIN 2% 22 GM OINT TOP ×2 (08:59→20:29)
[2018-05-05] MEDS: BALSAM PERU/CASTOR OIL 60 GM TUBE TOP ×2 (08:59→20:29)
[2018-05-05] MEDS: VITAMIN A & D 5 GM OINT PACKET TOP (09:00)
[2018-05-05] MEDS: COLLAGENASE 5 GM (UD JAR) TOP (09:02)
[2018-05-05 11:22] LABS: AADO2 Arterial 86.8 mmHg (7.0-24.0); Allen Test ACCEPTAB; Arterial Base Excess 10.2 mmol/L (-3.0-3); Arterial Blood Gas Oxygen Sat 94.9 mmHG (95.0-100.0); Arterial COHb 1.5 % (0.0-3.0); Arterial Fraction of Oxyhgb 93.4 % (93.0-99.0); Arterial HCO3 35.3 mmol/L (22.0-26.0); Arterial MetHb 0.1 % (0.0-1.5); Arterial Total Hemglobin 13.9 g/dl (12.0-18.0); Arterial pCO2 48.2 mmhg (35-45); Blood Gas PS 10; MODE VENT - CPAP; Site Right Radial
[2018-05-05] MEDS: ENOXAPARIN 100 MG/ML SYG SC (13:40)
[2018-05-05] MEDS: MIDAZOLAM (DRIP) 50 mg/50 mL 50 ML IV ×2 (16:48→20:30)
[2018-05-05] MEDS: FENTAnyl (DRIP) 1000 mcg/100mL 100 ML IV ×2 (17:17→22:26)
[2018-05-05] MEDS: MEROPENEM 1 GM/50ML(PMX) 50 ML IVPB (21:56)
[2018-05-05] MEDS: FLUCONAZOLE 100 MG/50 ML (PMX) 50 ML IVPB (22:38)
[2018-05-05] MEDS: VANCOMYCIN 1.25 GM in SOD CHLORIDE 0.9% 250 ML IVPB (22:39)
[2018-05-06] MEDS: IPRATROPIUM (HFA) 12.9 GM INHALER INH ×4 (01:55→19:54)
[2018-05-06] MEDS: ALBUTEROL HFA 8 GM INHALER INH ×4 (01:55→19:54)
[2018-05-06 05:26] LABS: ADD MAN DIFF? NO
[2018-05-06 05:39] LABS: WHITE BLOOD COUNT 8.5 10^3/ul (4.8-10.8)
[2018-05-06 05:39] LABS: BASOPHIL # 0.2 10^3/ul (0.0-0.1); BASOPHILS % 1.9 % (0.0-2.0); EOSINOPHILS # 0.2 10^3/ul (0.0-0.5); EOSINOPHILS % 2.1 % (0.0-7.0); HEMATOCRIT 41.1 % (42.0-52.0); HEMOGLOBIN 12.5 g/dl (14.0-18.0); LYMPHOCYTES # 0.9 10^3/ul (0.8-2.9); LYMPHOCYTES % 10.9 % (15.0-51.0); MEAN CORPUSCULAR HEMOGLOBIN 27.7 pg (29.0-33.0); MEAN CORPUSCULAR HGB CONC 30.4 g/dl (32.0-37.0); MEAN CORPUSCULAR VOLUME 90.9 fl (82.0-101.0); MEAN PLATELET VOLUME 12.1 fl (7.4-10.4); MONOCYTE # 0.8 10^3/ul (0.3-0.9); MONOCYTES % 9.2 % (0.0-11.0); NEUTROPHIL # 6.4 10^3/ul (1.6-7.5); NEUTROPHILS % 75.5 % (39.0-77.0); PLATELET COUNT 252 10^3/UL (140-415); RED BLOOD COUNT 4.52 10^6/ul (4.70-6.10); RED CELL DISTRIBUTION WIDTH 19.8 % (11.5-14.5)
[2018-05-06] MEDS: PANTOPRAZOLE 40 MG INJ IV (05:43)
[2018-05-06 06:02] LABS: MAGNESIUM 1.6 mg/dl (1.7-2.5)
[2018-05-06 06:21] LABS: ANION GAP 5 (8-16); BLOOD UREA NITROGEN 29 mg/dl (7-20); CALCIUM 8.9 mg/dl (8.4-10.2); CARBON DIOXIDE 39 mmol/L (21-31); CHLORIDE 108 mmol/L (97-110); CREATININE 0.91 mg/dl (0.61-1.24); GLUCOSE 142 mg/dl (70-220); SODIUM 148 mmol/L (135-144)
[2018-05-06] MEDS: ASPIRIN 81 MG TAB PO (08:17)
[2018-05-06] MEDS: COLLAGENASE 5 GM (UD JAR) TOP (08:18)
[2018-05-06] MEDS: VITAMIN A & D 5 GM OINT PACKET TOP (08:18)
[2018-05-06] MEDS: MUPIROCIN 2% 22 GM OINT TOP ×2 (08:19→20:37)
[2018-05-06] MEDS: BALSAM PERU/CASTOR OIL 60 GM TUBE TOP ×2 (08:19→20:37)
[2018-05-06] MEDS: MEROPENEM 1 GM/50ML(PMX) 50 ML IVPB ×2 (09:11→20:37)
[2018-05-06] MEDS: MAGNESIUM SULFATE 2 GM/50 ML 50 ML IVPB (13:07)
[2018-05-06] MEDS: DIGOXIN 500 MCG INJ IV (13:07)
[2018-05-06] MEDS: ENOXAPARIN 100 MG/ML SYG SC (14:32)
[2018-05-06] MEDS: POTASSIUM PHOSPHATE 20 MEQ in SOD CHLORIDE 0.9% 250 ML IVPB (20:36)
[2018-05-06] MEDS: FLUCONAZOLE 100 MG/50 ML (PMX) 50 ML IVPB (22:29)
[2018-05-06 22:48] LABS: VANCOMYCIN,TROUGH 17.6 ug/ml (10.0-20.0)
[2018-05-06] MEDS: VANCOMYCIN 1.25 GM in SOD CHLORIDE 0.9% 250 ML IVPB (23:07)
[2018-05-07] MEDS: ALBUTEROL HFA 8 GM INHALER INH ×4 (01:50→20:03)
[2018-05-07] MEDS: IPRATROPIUM (HFA) 12.9 GM INHALER INH ×4 (01:50→20:03)
[2018-05-07] MEDS: MIDAZOLAM (DRIP) 50 mg/50 mL 50 ML IV (04:35)
[2018-05-07 05:00] LABS: ADD MAN DIFF? NO
[2018-05-07 05:02] LABS: BASOPHIL # 0.2 10^3/ul (0.0-0.1); BASOPHILS % 1.6 % (0.0-2.0); EOSINOPHILS # 0.2 10^3/ul (0.0-0.5); EOSINOPHILS % 2.5 % (0.0-7.0); HEMATOCRIT 39.4 % (42.0-52.0); HEMOGLOBIN 11.8 g/dl (14.0-18.0); LYMPHOCYTES # 1.4 10^3/ul (0.8-2.9); LYMPHOCYTES % 14.6 % (15.0-51.0); MEAN CORPUSCULAR HEMOGLOBIN 27.7 pg (29.0-33.0); MEAN CORPUSCULAR HGB CONC 29.9 g/dl (32.0-37.0); MEAN CORPUSCULAR VOLUME 92.5 fl (82.0-101.0); MEAN PLATELET VOLUME 12.2 fl (7.4-10.4); MONOCYTES % 10.3 % (0.0-11.0); NEUTROPHIL # 6.5 10^3/ul (1.6-7.5); NEUTROPHILS % 70.7 % (39.0-77.0); PLATELET COUNT 249 10^3/UL (140-415); RED BLOOD COUNT 4.26 10^6/ul (4.70-6.10); RED CELL DISTRIBUTION WIDTH 19.5 % (11.5-14.5)
[2018-05-07 05:02] LABS: WHITE BLOOD COUNT 9.3 10^3/ul (4.8-10.8)
[2018-05-07 05:23] LABS: MAGNESIUM 2.6 mg/dl (1.7-2.5)
[2018-05-07 05:23] LABS: PHOSPHORUS 2.9 mg/dl (2.5-4.9)
[2018-05-07 05:38] LABS: ANION GAP 5 (8-16); BLOOD UREA NITROGEN 27 mg/dl (7-20); CALCIUM 8.5 mg/dl (8.4-10.2); CARBON DIOXIDE 39 mmol/L (21-31); CHLORIDE 108 mmol/L (97-110); CREATININE 0.76 mg/dl (0.61-1.24); GLUCOSE 102 mg/dl (70-220); POTASSIUM 4.5 mmol/L (3.5-5.1); SODIUM 147 mmol/L (135-144)
[2018-05-07] MEDS: PANTOPRAZOLE 40 MG INJ IV (06:08)
[2018-05-07] MEDS: ASPIRIN 81 MG TAB PO (09:06)
[2018-05-07] MEDS: MUPIROCIN 2% 22 GM OINT TOP ×2 (09:08→21:00)
[2018-05-07] MEDS: BALSAM PERU/CASTOR OIL 60 GM TUBE TOP ×2 (09:08→21:00)
[2018-05-07] MEDS: MEROPENEM 1 GM/50ML(PMX) 50 ML IVPB ×2 (09:18→21:00)
[2018-05-07] MEDS: VITAMIN A & D 5 GM OINT PACKET TOP (09:19)
[2018-05-07] MEDS: COLLAGENASE 5 GM (UD JAR) TOP (09:19)
[2018-05-07] MEDS: DIGOXIN 500 MCG INJ IV (12:21)
[2018-05-07] MEDS: ENOXAPARIN 100 MG/ML SYG SC (16:01)
[2018-05-07] MEDS ORDERED: HEPARIN 1000 UNITS/ML 10 ML INJ (18:37)
[2018-05-07] MEDS: FENTAnyl (DRIP) 1000 mcg/100mL 100 ML IV (21:13)
[2018-05-07] MEDS: LORAZEPAM 2 MG INJ IV (21:17)
[2018-05-07] MEDS: FLUCONAZOLE 100 MG/50 ML (PMX) 50 ML IVPB (21:17)
[2018-05-07] MEDS: VANCOMYCIN 1 GM 250 ML IVPB (23:46)
[2018-05-08] MEDS: IPRATROPIUM (HFA) 12.9 GM INHALER INH ×4 (02:27→19:43)
[2018-05-08] MEDS: ALBUTEROL HFA 8 GM INHALER INH ×4 (02:27→19:43)
[2018-05-08 05:47] LABS: DIGOXIN 0.7 ng/ml (1.0-2.0)
[2018-05-08 05:50] LABS: ALANINE AMINOTRANSFERASE 56 IU/L (13-69); ALBUMIN 2.2 g/dl (3.3-4.9); ALBUMIN/GLOBULIN RATIO 0.64; ALKALINE PHOSPHATASE 217 IU/L (42-121); ANION GAP 4 (8-16); ASPARTATE AMINO TRANSFERASE 108 IU/L (15-46); BILIRUBIN,INDIRECT 0.6 mg/dl (0-1.1); BLOOD UREA NITROGEN 29 mg/dl (7-20); CALCIUM 8.8 mg/dl (8.4-10.2); CARBON DIOXIDE 39 mmol/L (21-31); CHLORIDE 109 mmol/L (97-110); CREATININE 0.74 mg/dl (0.61-1.24); GLUCOSE 124 mg/dl (70-220); MAGNESIUM 2.4 mg/dl (1.7-2.5); POTASSIUM 4.6 mmol/L (3.5-5.1); SODIUM 147 mmol/L (135-144); TOTAL PROTEIN 5.6 g/dl (6.1-8.1)
[2018-05-08] MEDS: PANTOPRAZOLE 40 MG INJ IV (06:20)
[2018-05-08] MEDS: ASPIRIN 81 MG TAB PO (08:36)
[2018-05-08] MEDS: MEROPENEM 1 GM/50ML(PMX) 50 ML IVPB (08:36)
[2018-05-08] MEDS: MUPIROCIN 2% 22 GM OINT TOP ×2 (08:39→20:33)
[2018-05-08] MEDS: BALSAM PERU/CASTOR OIL 60 GM TUBE TOP ×2 (08:39→20:33)
[2018-05-08] MEDS: VITAMIN A & D 5 GM OINT PACKET TOP (08:39)
[2018-05-08] MEDS: COLLAGENASE 5 GM (UD JAR) TOP (08:39)
[2018-05-08 11:03] LABS: AADO2 Arterial 108.5 mmHg (7.0-24.0); Allen Test ACCEPTAB; Arterial Base Excess 10.7 mmol/L (-3.0-3); Arterial COHb 1.4 % (0.0-3.0); Arterial Fraction of Oxyhgb 90.5 % (93.0-99.0); Arterial HCO3 34.3 mmol/L (22.0-26.0); Arterial MetHb 0.2 % (0.0-1.5); Arterial Total Hemglobin 13.4 g/dl (12.0-18.0); Arterial pCO2 41.4 mmhg (35-45); Blood Gas PS 10; MODE VENT - SIMV; Site Left Radial
[2018-05-08] MEDS: LEVOFLOXACIN 500MG/D5W (PMX) 100 ML IVPB (13:02)
[2018-05-08] MEDS: DIGOXIN 500 MCG INJ IV (13:38)
[2018-05-08] MEDS: ENOXAPARIN 100 MG/ML SYG SC (13:44)
[2018-05-08] MEDS: FENTAnyl (DRIP) 1000 mcg/100mL 100 ML IV (20:35)
[2018-05-09] MEDS: IPRATROPIUM (HFA) 12.9 GM INHALER INH ×2 (01:28→08:14)
[2018-05-09] MEDS: ALBUTEROL HFA 8 GM INHALER INH ×2 (01:28→08:14)
[2018-05-09 05:27] LABS: ADD MAN DIFF? NO
[2018-05-09 05:36] LABS: BASOPHIL # 0.2 10^3/ul (0.0-0.1); BASOPHILS % 1.6 % (0.0-2.0); EOSINOPHILS # 0.2 10^3/ul (0.0-0.5); EOSINOPHILS % 1.7 % (0.0-7.0); HEMATOCRIT 36.5 % (42.0-52.0); HEMOGLOBIN 11.6 g/dl (14.0-18.0); LYMPHOCYTES % 9.2 % (15.0-51.0); MEAN CORPUSCULAR HEMOGLOBIN 28.2 pg (29.0-33.0); MEAN CORPUSCULAR HGB CONC 31.8 g/dl (32.0-37.0); MEAN CORPUSCULAR VOLUME 88.6 fl (82.0-101.0); MEAN PLATELET VOLUME 12.7 fl (7.4-10.4); MONOCYTE # 0.9 10^3/ul (0.3-0.9); MONOCYTES % 8.5 % (0.0-11.0); NEUTROPHIL # 8.5 10^3/ul (1.6-7.5); NEUTROPHILS % 78.6 % (39.0-77.0); PLATELET COUNT 290 10^3/UL (140-415); RED BLOOD COUNT 4.12 10^6/ul (4.70-6.10); RED CELL DISTRIBUTION WIDTH 19.9 % (11.5-14.5)
[2018-05-09 05:36] LABS: WHITE BLOOD COUNT 10.9 10^3/ul (4.8-10.8)
[2018-05-09] MEDS: LANSOPRAZOLE 30 MG CAP GTB (05:54)
[2018-05-09 06:04] LABS: MAGNESIUM 2.2 mg/dl (1.7-2.5)
[2018-05-09 06:04] LABS: PHOSPHORUS 2.7 mg/dl (2.5-4.9)
[2018-05-09 06:08] LABS: ALANINE AMINOTRANSFERASE 67 IU/L (13-69); ALBUMIN 2.2 g/dl (3.3-4.9); ALBUMIN/GLOBULIN RATIO 0.62; ALKALINE PHOSPHATASE 216 IU/L (42-121); ANION GAP 6 (8-16); ASPARTATE AMINO TRANSFERASE 102 IU/L (15-46); BILIRUBIN,INDIRECT 0.6 mg/dl (0-1.1); BILIRUBIN,TOTAL 2.5 mg/dl (0.2-1.3); BLOOD UREA NITROGEN 27 mg/dl (7-20); CALCIUM 8.9 mg/dl (8.4-10.2); CARBON DIOXIDE 37 mmol/L (21-31); CHLORIDE 107 mmol/L (97-110); CREATININE 0.79 mg/dl (0.61-1.24); GLUCOSE 122 mg/dl (70-220); POTASSIUM 4.4 mmol/L (3.5-5.1); SODIUM 146 mmol/L (135-144); TOTAL PROTEIN 5.7 g/dl (6.1-8.1)
[2018-05-09] MEDS: COLLAGENASE 5 GM (UD JAR) TOP (08:42)
[2018-05-09] MEDS: ASPIRIN 81 MG TAB PO (08:42)
[2018-05-09] MEDS: MUPIROCIN 2% 22 GM OINT TOP ×2 (08:42→20:48)
[2018-05-09] MEDS: BALSAM PERU/CASTOR OIL 60 GM TUBE TOP ×2 (08:42→20:48)
[2018-05-09] MEDS: VITAMIN A & D 5 GM OINT PACKET TOP (08:43)
[2018-05-09 11:04] LABS: Allen Test ACCEPTAB; Arterial Base Excess 8.3 mmol/L (-3.0-3); Arterial COHb 1.1 % (0.0-3.0); Arterial Fraction of Oxyhgb 95.9 % (93.0-99.0); Arterial HCO3 31.4 mmol/L (22.0-26.0); Arterial MetHb 0 % (0.0-1.5); Arterial Total Hemglobin 13.3 g/dl (12.0-18.0); Arterial pCO2 38.1 mmhg (35-45); Blood Gas PS 10; MODE VENT - CPAP; Site Right Radial
[2018-05-09] MEDS: LEVOFLOXACIN 500MG/D5W (PMX) 100 ML IVPB (12:38)
[2018-05-09] MEDS: DIGOXIN 500 MCG INJ IV (12:38)
[2018-05-09] MEDS: LORAZEPAM 2 MG INJ IV (12:42)
[2018-05-09] MEDS: ENOXAPARIN 100 MG/ML SYG SC (15:12)
[2018-05-10 05:37] LABS: ADD MAN DIFF? NO
[2018-05-10 05:42] LABS: BASOPHIL # 0.2 10^3/ul (0.0-0.1); BASOPHILS % 1.4 % (0.0-2.0); EOSINOPHILS # 0.1 10^3/ul (0.0-0.5); EOSINOPHILS % 0.6 % (0.0-7.0); HEMATOCRIT 38.8 % (42.0-52.0); HEMOGLOBIN 12.3 g/dl (14.0-18.0); LYMPHOCYTES # 1.4 10^3/ul (0.8-2.9); LYMPHOCYTES % 12.1 % (15.0-51.0); MEAN CORPUSCULAR HGB CONC 31.7 g/dl (32.0-37.0); MEAN CORPUSCULAR VOLUME 88.4 fl (82.0-101.0); MONOCYTES % 8.5 % (0.0-11.0); NEUTROPHIL # 9.2 10^3/ul (1.6-7.5); PLATELET COUNT 355 10^3/UL (140-415); RED BLOOD COUNT 4.39 10^6/ul (4.70-6.10); RED CELL DISTRIBUTION WIDTH 20.1 % (11.5-14.5)
[2018-05-10 05:42] LABS: WHITE BLOOD COUNT 11.9 10^3/ul (4.8-10.8)
[2018-05-10] MEDS: LANSOPRAZOLE 30 MG CAP GTB (06:00)
[2018-05-10 06:22] LABS: ANION GAP 7 (8-16); BLOOD UREA NITROGEN 29 mg/dl (7-20); CALCIUM 9.1 mg/dl (8.4-10.2); CARBON DIOXIDE 35 mmol/L (21-31); CHLORIDE 109 mmol/L (97-110); CREATININE 0.85 mg/dl (0.61-1.24); GLUCOSE 58 mg/dl (70-220); POTASSIUM 4.1 mmol/L (3.5-5.1); SODIUM 147 mmol/L (135-144)
[2018-05-10] MEDS ORDERED: DEXTROSE 50% 50 ML SYRINGE IV (07:00)
[2018-05-10 07:14] LABS: MAGNESIUM 2.2 mg/dl (1.7-2.5)
[2018-05-10 07:14] LABS: PHOSPHORUS 2.9 mg/dl (2.5-4.9)
[2018-05-10 07:31] LABS: AADO2 Arterial 124.8 mmHg (7.0-24.0); Allen Test ACCEPTAB; Arterial Blood Gas Oxygen Sat 88.1 mmHG (95.0-100.0); Arterial COHb 1.7 % (0.0-3.0); Arterial Fraction of Oxyhgb 86.5 % (93.0-99.0); Arterial HCO3 29.5 mmol/L (22.0-26.0); Arterial MetHb 0.1 % (0.0-1.5); Arterial pCO2 34.6 mmhg (35-45); MODE NASAL CANNULA; Site Right Radial
[2018-05-10] MEDS: MUPIROCIN 2% 22 GM OINT TOP ×2 (08:28→21:07)
[2018-05-10] MEDS: VITAMIN A & D 5 GM OINT PACKET TOP (08:28)
[2018-05-10] MEDS: ASPIRIN 81 MG TAB PO (08:28)
[2018-05-10] MEDS: DEXTROSE 50% 50 ML SYRINGE IV (08:28)
[2018-05-10] MEDS: BALSAM PERU/CASTOR OIL 60 GM TUBE TOP ×2 (08:29→21:08)
[2018-05-10] MEDS: DEXTROSE 5%-0.45% NACL 1,000 ML IV (09:33)
[2018-05-10] MEDS: LEVOFLOXACIN 500MG/D5W (PMX) 100 ML IVPB (12:46)
[2018-05-10] MEDS: DIGOXIN 500 MCG INJ IV (12:46)
[2018-05-10] MEDS: COLLAGENASE 5 GM (UD JAR) TOP (12:46)
[2018-05-10] MEDS ORDERED: ALTEPLASE (CATHFLO) 2 MG INJ CATHETER (15:30)
[2018-05-10] MEDS ORDERED: VANCOMYCIN IV PER PHARMACY XX (15:30)
[2018-05-10] MEDS: ACETAMINOPHEN 1000MG/100ML IV 100 ML IVPB ×2 (16:25→21:21)
[2018-05-10] MEDS: CEFEPIME 1GM/50 ML (PMX) 50 ML IVPB ×2 (16:25→21:20)
[2018-05-10] MEDS: ENOXAPARIN 100 MG/ML SYG SC (16:25)
[2018-05-10] MEDS: VANCOMYCIN 1.5 GM in SOD CHLORIDE 0.9% 250 ML IVPB (18:46)
[2018-05-11] MEDS: DEXTROSE 5%-0.45% NACL 1,000 ML IV ×2 (03:00→06:00)
[2018-05-11] MEDS: ACETAMINOPHEN 1000MG/100ML IV 100 ML IVPB (03:04)
[2018-05-11 05:35] LABS: ADD MAN DIFF? NO
[2018-05-11 05:46] LABS: WHITE BLOOD COUNT 12.7 10^3/ul (4.8-10.8)
[2018-05-11 05:46] LABS: BASOPHIL # 0.2 10^3/ul (0.0-0.1); BASOPHILS % 1.5 % (0.0-2.0); EOSINOPHILS # 0.2 10^3/ul (0.0-0.5); EOSINOPHILS % 1.7 % (0.0-7.0); HEMATOCRIT 37.3 % (42.0-52.0); HEMOGLOBIN 12.1 g/dl (14.0-18.0); LYMPHOCYTES # 1.1 10^3/ul (0.8-2.9); LYMPHOCYTES % 8.9 % (15.0-51.0); MEAN CORPUSCULAR HEMOGLOBIN 27.9 pg (29.0-33.0); MEAN CORPUSCULAR HGB CONC 32.4 g/dl (32.0-37.0); MEAN CORPUSCULAR VOLUME 85.9 fl (82.0-101.0); MEAN PLATELET VOLUME 12.9 fl (7.4-10.4); MONOCYTE # 0.9 10^3/ul (0.3-0.9); MONOCYTES % 6.9 % (0.0-11.0); NEUTROPHIL # 10.3 10^3/ul (1.6-7.5); NEUTROPHILS % 80.6 % (39.0-77.0); PLATELET COUNT 430 10^3/UL (140-415); RED BLOOD COUNT 4.34 10^6/ul (4.70-6.10); RED CELL DISTRIBUTION WIDTH 20.9 % (11.5-14.5)
[2018-05-11] MEDS: LANSOPRAZOLE 30 MG CAP GTB (06:02)
[2018-05-11 06:39] LABS: ANION GAP 7 (8-16); BLOOD UREA NITROGEN 30 mg/dl (7-20); CALCIUM 8.9 mg/dl (8.4-10.2); CARBON DIOXIDE 35 mmol/L (21-31); CHLORIDE 109 mmol/L (97-110); CREATININE 0.77 mg/dl (0.61-1.24); GLUCOSE 134 mg/dl (70-220); MAGNESIUM 2.1 mg/dl (1.7-2.5); PHOSPHORUS 3.1 mg/dl (2.5-4.9); POTASSIUM 3.8 mmol/L (3.5-5.1); SODIUM 147 mmol/L (135-144)
[2018-05-11] MEDS: MUPIROCIN 2% 22 GM OINT TOP ×2 (09:46→20:25)
[2018-05-11] MEDS: COLLAGENASE 5 GM (UD JAR) TOP (09:46)
[2018-05-11] MEDS: CEFEPIME 1GM/50 ML (PMX) 50 ML IVPB ×2 (09:46→20:25)
[2018-05-11] MEDS: BALSAM PERU/CASTOR OIL 60 GM TUBE TOP ×2 (09:46→20:25)
[2018-05-11] MEDS: ASPIRIN 81 MG TAB PO (09:46)
[2018-05-11] MEDS: VITAMIN A & D 5 GM OINT PACKET TOP (09:47)
[2018-05-11] MEDS: LEVOFLOXACIN 500MG/D5W (PMX) 100 ML IVPB (13:44)
[2018-05-11] MEDS: DIGOXIN 500 MCG INJ IV (13:45)
[2018-05-11] MEDS: ENOXAPARIN 100 MG/ML SYG SC (13:46)
[2018-05-11] MEDS ORDERED: ACETAMINOPHEN 325 MG TAB PO (15:30)
[2018-05-11] MEDS: POLYETHYLENE GLYCOL 17 GM PACKET NGT (17:02)
[2018-05-11] MEDS: VANCOMYCIN 1 GM (PMX) 250 ML IVPB (17:02)
[2018-05-11] MEDS: MAGNESIUM HYDROXIDE 30ML CUP PO (17:04)
[2018-05-11] MEDS: DOCUSATE SODIUM 10 MG/ML (10ML CUP) NGT (20:25)
[2018-05-11] MEDS ORDERED: DOCUSATE SODIUM 100 MG CAP PO (21:00)
[2018-05-12] MEDS: LANSOPRAZOLE 30 MG CAP GTB (05:21)
[2018-05-12] MEDS: DEXTROSE 5%-0.45% NACL 1,000 ML IV ×2 (05:49→21:50)
[2018-05-12 05:50] LABS: ADD MAN DIFF? NO
[2018-05-12 05:59] LABS: BASOPHIL # 0.2 10^3/ul (0.0-0.1); BASOPHILS % 1.4 % (0.0-2.0); EOSINOPHILS # 0.3 10^3/ul (0.0-0.5); EOSINOPHILS % 3.2 % (0.0-7.0); HEMATOCRIT 37.7 % (42.0-52.0); HEMOGLOBIN 12.4 g/dl (14.0-18.0); LYMPHOCYTES # 1.1 10^3/ul (0.8-2.9); LYMPHOCYTES % 10.7 % (15.0-51.0); MEAN CORPUSCULAR HEMOGLOBIN 28.2 pg (29.0-33.0); MEAN CORPUSCULAR HGB CONC 32.9 g/dl (32.0-37.0); MEAN CORPUSCULAR VOLUME 85.9 fl (82.0-101.0); MEAN PLATELET VOLUME 12.1 fl (7.4-10.4); MONOCYTE # 0.8 10^3/ul (0.3-0.9); MONOCYTES % 7.6 % (0.0-11.0); NEUTROPHILS % 76.8 % (39.0-77.0); PLATELET COUNT 446 10^3/UL (140-415); RED BLOOD COUNT 4.39 10^6/ul (4.70-6.10); RED CELL DISTRIBUTION WIDTH 20.6 % (11.5-14.5)
[2018-05-12 05:59] LABS: WHITE BLOOD COUNT 10.4 10^3/ul (4.8-10.8)
[2018-05-12 06:17] LABS: DIGOXIN 1.4 ng/ml (1.0-2.0)
[2018-05-12 06:25] LABS: ALANINE AMINOTRANSFERASE 52 IU/L (13-69); ALBUMIN 2.1 g/dl (3.3-4.9); ALBUMIN/GLOBULIN RATIO 0.63; ALKALINE PHOSPHATASE 170 IU/L (42-121); ANION GAP 8 (8-16); ASPARTATE AMINO TRANSFERASE 70 IU/L (15-46); BILIRUBIN,TOTAL 3.1 mg/dl (0.2-1.3); BLOOD UREA NITROGEN 26 mg/dl (7-20); CALCIUM 8.7 mg/dl (8.4-10.2); CARBON DIOXIDE 32 mmol/L (21-31); CHLORIDE 110 mmol/L (97-110); CREATININE 0.74 mg/dl (0.61-1.24); GLUCOSE 96 mg/dl (70-220); POTASSIUM 3.8 mmol/L (3.5-5.1); SODIUM 146 mmol/L (135-144); TOTAL PROTEIN 5.4 g/dl (6.1-8.1)
[2018-05-12] MEDS: CEFEPIME 1GM/50 ML (PMX) 50 ML IVPB ×2 (09:19→21:43)
[2018-05-12] MEDS: DOCUSATE SODIUM 10 MG/ML (10ML CUP) NGT ×2 (09:19→21:43)
[2018-05-12] MEDS: MIDODRINE 5 MG TAB NGT ×3 (09:19→17:52)
[2018-05-12] MEDS: VITAMIN A & D 5 GM OINT PACKET TOP (09:19)
[2018-05-12] MEDS: POLYETHYLENE GLYCOL 17 GM PACKET NGT (09:19)
[2018-05-12] MEDS: BALSAM PERU/CASTOR OIL 60 GM TUBE TOP ×2 (09:19→21:44)
[2018-05-12] MEDS: MUPIROCIN 2% 22 GM OINT TOP ×2 (09:19→21:44)
[2018-05-12] MEDS: COLLAGENASE 5 GM (UD JAR) TOP (09:19)
[2018-05-12] MEDS: ASPIRIN 81 MG TAB PO (09:19)
[2018-05-12] MEDS: LEVOFLOXACIN 500MG/D5W (PMX) 100 ML IVPB (12:21)
[2018-05-12] MEDS: DIGOXIN 500 MCG INJ IV (12:21)
[2018-05-12] MEDS: ENOXAPARIN 100 MG/ML SYG SC (14:39)
[2018-05-12] MEDS: VANCOMYCIN 1 GM (PMX) 250 ML IVPB (17:52)
[2018-05-13 05:17] LABS: ADD MAN DIFF? NO
[2018-05-13 05:21] LABS: BASOPHIL # 0.2 10^3/ul (0.0-0.1); BASOPHILS % 2.1 % (0.0-2.0); EOSINOPHILS # 0.4 10^3/ul (0.0-0.5); EOSINOPHILS % 3.8 % (0.0-7.0); HEMATOCRIT 35.1 % (42.0-52.0); HEMOGLOBIN 11.7 g/dl (14.0-18.0); LYMPHOCYTES # 1.3 10^3/ul (0.8-2.9); LYMPHOCYTES % 12.2 % (15.0-51.0); MEAN CORPUSCULAR HEMOGLOBIN 28.3 pg (29.0-33.0); MEAN CORPUSCULAR HGB CONC 33.3 g/dl (32.0-37.0); MEAN PLATELET VOLUME 12.2 fl (7.4-10.4); MONOCYTES % 8.7 % (0.0-11.0); NEUTROPHILS % 72.5 % (39.0-77.0); PLATELET COUNT 467 10^3/UL (140-415); RED BLOOD COUNT 4.13 10^6/ul (4.70-6.10); RED CELL DISTRIBUTION WIDTH 21.1 % (11.5-14.5)
[2018-05-13 05:29] LABS: ALANINE AMINOTRANSFERASE 67 IU/L (13-69); ALBUMIN 2.1 g/dl (3.3-4.9); ALBUMIN/GLOBULIN RATIO 0.58; ALKALINE PHOSPHATASE 302 IU/L (42-121); ANION GAP 6 (8-16); ASPARTATE AMINO TRANSFERASE 105 IU/L (15-46); BILIRUBIN,INDIRECT 1.3 mg/dl (0-1.1); BILIRUBIN,TOTAL 4.4 mg/dl (0.2-1.3); BLOOD UREA NITROGEN 26 mg/dl (7-20); CALCIUM 8.5 mg/dl (8.4-10.2); CARBON DIOXIDE 33 mmol/L (21-31); CHLORIDE 108 mmol/L (97-110); CREATININE 0.72 mg/dl (0.61-1.24); GLUCOSE 98 mg/dl (70-220); POTASSIUM 4.2 mmol/L (3.5-5.1); SODIUM 143 mmol/L (135-144); TOTAL PROTEIN 5.7 g/dl (6.1-8.1)
[2018-05-13 05:32] LABS: MAGNESIUM 1.9 mg/dl (1.7-2.5)
[2018-05-13 05:32] LABS: PHOSPHORUS 2.8 mg/dl (2.5-4.9)
[2018-05-13] MEDS: LANSOPRAZOLE 30 MG CAP GTB (06:46)
[2018-05-13] MEDS: COLLAGENASE 5 GM (UD JAR) TOP (08:37)
[2018-05-13] MEDS: ASPIRIN 81 MG TAB PO (08:37)
[2018-05-13] MEDS: BALSAM PERU/CASTOR OIL 60 GM TUBE TOP ×2 (08:37→21:00)
[2018-05-13] MEDS: VITAMIN A & D 5 GM OINT PACKET TOP (08:37)
[2018-05-13] MEDS: MIDODRINE 5 MG TAB NGT ×3 (08:38→17:12)
[2018-05-13] MEDS: MUPIROCIN 2% 22 GM OINT TOP ×2 (08:38→21:00)
[2018-05-13] MEDS: DOCUSATE SODIUM 10 MG/ML (10ML CUP) NGT ×2 (08:38→21:00)
[2018-05-13] MEDS: POLYETHYLENE GLYCOL 17 GM PACKET NGT (08:39)
[2018-05-13] MEDS: CEFEPIME 1GM/50 ML (PMX) 50 ML IVPB ×2 (08:57→21:00)
[2018-05-13] MEDS: LORAZEPAM 2 MG INJ IV (11:28)
[2018-05-13] MEDS: ENOXAPARIN 100 MG/ML SYG SC (13:56)
[2018-05-13 16:24] LABS: VANCOMYCIN,TROUGH 13.9 ug/ml (10.0-20.0)
[2018-05-13] MEDS: DEXTROSE 5%-0.45% NACL 1,000 ML IV (17:07)
[2018-05-13] MEDS: VANCOMYCIN 1 GM (PMX) 250 ML IVPB (17:11)
[2018-05-14 05:09] LABS: ADD MAN DIFF? NO
[2018-05-14 05:15] LABS: WHITE BLOOD COUNT 9.3 10^3/ul (4.8-10.8)
[2018-05-14 05:15] LABS: BASOPHIL # 0.2 10^3/ul (0.0-0.1); BASOPHILS % 2.4 % (0.0-2.0); EOSINOPHILS # 0.4 10^3/ul (0.0-0.5); EOSINOPHILS % 4.5 % (0.0-7.0); HEMATOCRIT 35.4 % (42.0-52.0); HEMOGLOBIN 11.8 g/dl (14.0-18.0); LYMPHOCYTES # 1.2 10^3/ul (0.8-2.9); LYMPHOCYTES % 13.2 % (15.0-51.0); MEAN CORPUSCULAR HEMOGLOBIN 28.2 pg (29.0-33.0); MEAN CORPUSCULAR HGB CONC 33.3 g/dl (32.0-37.0); MEAN CORPUSCULAR VOLUME 84.7 fl (82.0-101.0); MEAN PLATELET VOLUME 12.7 fl (7.4-10.4); MONOCYTE # 0.8 10^3/ul (0.3-0.9); NEUTROPHIL # 6.6 10^3/ul (1.6-7.5); NEUTROPHILS % 70.3 % (39.0-77.0); PLATELET COUNT 463 10^3/UL (140-415); RED BLOOD COUNT 4.18 10^6/ul (4.70-6.10); RED CELL DISTRIBUTION WIDTH 21.6 % (11.5-14.5)
[2018-05-14] MEDS: LANSOPRAZOLE 30 MG CAP GTB (05:28)
[2018-05-14 05:34] LABS: ALBUMIN 2.2 g/dl (3.3-4.9); ALBUMIN/GLOBULIN RATIO 0.62; ALKALINE PHOSPHATASE 320 IU/L (42-121); ANION GAP 7 (8-16); ASPARTATE AMINO TRANSFERASE 97 IU/L (15-46); BILIRUBIN,INDIRECT 1.1 mg/dl (0-1.1); BILIRUBIN,TOTAL 2.1 mg/dl (0.2-1.3); BLOOD UREA NITROGEN 27 mg/dl (7-20); CALCIUM 8.9 mg/dl (8.4-10.2); CARBON DIOXIDE 32 mmol/L (21-31); CHLORIDE 109 mmol/L (97-110); CREATININE 0.76 mg/dl (0.61-1.24); GLUCOSE 131 mg/dl (70-220); POTASSIUM 4.4 mmol/L (3.5-5.1); SODIUM 144 mmol/L (135-144); TOTAL PROTEIN 5.7 g/dl (6.1-8.1)
[2018-05-14 06:05] LABS: MAGNESIUM 2.1 mg/dl (1.7-2.5)
[2018-05-14 06:05] LABS: PHOSPHORUS 3.4 mg/dl (2.5-4.9)
[2018-05-14 07:27] LABS: ALANINE AMINOTRANSFERASE 72 IU/L (13-69)
[2018-05-14] MEDS: CEFEPIME 1GM/50 ML (PMX) 50 ML IVPB ×2 (08:23→20:29)
[2018-05-14] MEDS: COLLAGENASE 5 GM (UD JAR) TOP (08:23)
[2018-05-14] MEDS: POLYETHYLENE GLYCOL 17 GM PACKET NGT (08:23)
[2018-05-14] MEDS: DOCUSATE SODIUM 10 MG/ML (10ML CUP) NGT ×2 (08:23→20:27)
[2018-05-14] MEDS: ASPIRIN 81 MG TAB PO (08:23)
[2018-05-14] MEDS: VITAMIN A & D 5 GM OINT PACKET TOP (08:23)
[2018-05-14] MEDS: MIDODRINE 5 MG TAB NGT ×3 (08:26→16:00)
[2018-05-14] MEDS: MUPIROCIN 2% 22 GM OINT TOP ×2 (08:28→20:29)
[2018-05-14] MEDS: BALSAM PERU/CASTOR OIL 60 GM TUBE TOP ×2 (08:28→20:29)
[2018-05-14] MEDS: DEXTROSE 5%-0.45% NACL 1,000 ML IV (12:59)
[2018-05-14] MEDS: ENOXAPARIN 100 MG/ML SYG SC (13:02)
[2018-05-14] MEDS: FUROSEMIDE 20 MG INJ IV (15:56)
[2018-05-14] MEDS: VANCOMYCIN 1 GM (PMX) 250 ML IVPB (15:57)
[2018-05-15 05:08] LABS: ADD MAN DIFF? NO
[2018-05-15 05:26] LABS: BASOPHIL # 0.2 10^3/ul (0.0-0.1); BASOPHILS % 1.7 % (0.0-2.0); EOSINOPHILS # 0.3 10^3/ul (0.0-0.5); EOSINOPHILS % 2.4 % (0.0-7.0); HEMATOCRIT 32.8 % (42.0-52.0); HEMOGLOBIN 11.2 g/dl (14.0-18.0); LYMPHOCYTES # 1.4 10^3/ul (0.8-2.9); LYMPHOCYTES % 12.6 % (15.0-51.0); MEAN CORPUSCULAR HEMOGLOBIN 28.3 pg (29.0-33.0); MEAN CORPUSCULAR HGB CONC 34.1 g/dl (32.0-37.0); MEAN CORPUSCULAR VOLUME 82.8 fl (82.0-101.0); MEAN PLATELET VOLUME 12.2 fl (7.4-10.4); MONOCYTES % 9.5 % (0.0-11.0); NEUTROPHIL # 7.9 10^3/ul (1.6-7.5); NUCLEATED RED BLOOD CELLS% 0.2 /100WBC (0.0-0.0); PLATELET COUNT 463 10^3/UL (140-415); RED BLOOD COUNT 3.96 10^6/ul (4.70-6.10); RED CELL DISTRIBUTION WIDTH 21.9 % (11.5-14.5)
[2018-05-15 05:26] LABS: WHITE BLOOD COUNT 10.9 10^3/ul (4.8-10.8)
[2018-05-15] MEDS: LANSOPRAZOLE 30 MG CAP GTB (05:41)
[2018-05-15 06:11] LABS: DIGOXIN 1.3 ng/ml (1.0-2.0)
[2018-05-15 06:12] LABS: ANION GAP 8 (8-16); BLOOD UREA NITROGEN 25 mg/dl (7-20); CARBON DIOXIDE 33 mmol/L (21-31); CHLORIDE 105 mmol/L (97-110); GLUCOSE 106 mg/dl (70-220); MAGNESIUM 1.8 mg/dl (1.7-2.5); PHOSPHORUS 2.8 mg/dl (2.5-4.9); SODIUM 142 mmol/L (135-144)
[2018-05-15 06:18] LABS: B-TYPE NATRIURETIC PEPTIDE 5920 PG/ML (0-450)
[2018-05-15] MEDS: MUPIROCIN 2% 22 GM OINT TOP ×2 (08:24→22:09)
[2018-05-15] MEDS: BALSAM PERU/CASTOR OIL 60 GM TUBE TOP ×2 (08:24→22:09)
[2018-05-15] MEDS: CEFEPIME 1GM/50 ML (PMX) 50 ML IVPB (08:24)
[2018-05-15] MEDS: MIDODRINE 5 MG TAB NGT ×3 (08:25→17:52)
[2018-05-15] MEDS: DOCUSATE SODIUM 10 MG/ML (10ML CUP) NGT ×2 (08:25→20:43)
[2018-05-15] MEDS: VITAMIN A & D 5 GM OINT PACKET TOP (08:25)
[2018-05-15] MEDS: POLYETHYLENE GLYCOL 17 GM PACKET NGT (08:25)
[2018-05-15] MEDS: ASPIRIN 81 MG TAB PO (08:25)
[2018-05-15] MEDS: COLLAGENASE 5 GM (UD JAR) TOP ×2 (08:25→22:09)
[2018-05-15] MEDS: FUROSEMIDE 20 MG INJ IV (13:49)
[2018-05-15] MEDS: LEVOFLOXACIN 500MG/D5W (PMX) 100 ML IVPB (13:50)
[2018-05-15] MEDS ORDERED: COLLAGENASE 5 GM (UD JAR) TOP (20:30)
[2018-05-15] MEDS: SOD CHLORIDE 0.9% 500 ML IV (20:43)
[2018-05-16] MEDS: LANSOPRAZOLE 30 MG CAP GTB (06:24)
[2018-05-16 07:17] LABS: ADD MAN DIFF? NO
[2018-05-16 07:21] LABS: WHITE BLOOD COUNT 9.2 10^3/ul (4.8-10.8)
[2018-05-16 07:21] LABS: ABNORMAL IP MESSAGE 1; BASOPHIL # 0.1 10^3/ul (0.0-0.1); BASOPHILS % 1.5 % (0.0-2.0); EOSINOPHILS # 0.3 10^3/ul (0.0-0.5); EOSINOPHILS % 3.4 % (0.0-7.0); HEMATOCRIT 33.7 % (42.0-52.0); HEMOGLOBIN 11.3 g/dl (14.0-18.0); LYMPHOCYTES # 1.2 10^3/ul (0.8-2.9); LYMPHOCYTES % 13.3 % (15.0-51.0); MEAN CORPUSCULAR HEMOGLOBIN 28.6 pg (29.0-33.0); MEAN CORPUSCULAR HGB CONC 33.5 g/dl (32.0-37.0); MEAN CORPUSCULAR VOLUME 85.3 fl (82.0-101.0); MEAN PLATELET VOLUME 11.8 fl (7.4-10.4); MONOCYTE # 1.2 10^3/ul (0.3-0.9); MONOCYTES % 12.6 % (0.0-11.0); NEUTROPHIL # 6.3 10^3/ul (1.6-7.5); NEUTROPHILS % 67.8 % (39.0-77.0); PLATELET COUNT 434 10^3/UL (140-415); POSITIVE DIFF @See below; RED BLOOD COUNT 3.95 10^6/ul (4.70-6.10); RED CELL DISTRIBUTION WIDTH 23.2 % (11.5-14.5)
[2018-05-16 07:45] LABS: MAGNESIUM 1.7 mg/dl (1.7-2.5)
[2018-05-16 07:47] LABS: ALANINE AMINOTRANSFERASE 51 IU/L (13-69); ALBUMIN 1.9 g/dl (3.3-4.9); ALBUMIN/GLOBULIN RATIO 0.55; ALKALINE PHOSPHATASE 265 IU/L (42-121); ANION GAP 9 (8-16); ASPARTATE AMINO TRANSFERASE 54 IU/L (15-46); BILIRUBIN,TOTAL 1.1 mg/dl (0.2-1.3); BLOOD UREA NITROGEN 27 mg/dl (7-20); CALCIUM 8.8 mg/dl (8.4-10.2); CARBON DIOXIDE 31 mmol/L (21-31); CHLORIDE 105 mmol/L (97-110); GLUCOSE 99 mg/dl (70-220); POTASSIUM 4.2 mmol/L (3.5-5.1); SODIUM 141 mmol/L (135-144); TOTAL PROTEIN 5.3 g/dl (6.1-8.1)
[2018-05-16] MEDS: COLLAGENASE 5 GM (UD JAR) TOP ×2 (09:01)
[2018-05-16] MEDS: ENOXAPARIN 40 MG/0.4 ML SYG SC (09:01)
[2018-05-16] MEDS: ASPIRIN 81 MG TAB PO (09:01)
[2018-05-16] MEDS: DOCUSATE SODIUM 10 MG/ML (10ML CUP) NGT (09:01)
[2018-05-16] MEDS: POLYETHYLENE GLYCOL 17 GM PACKET NGT (09:01)
[2018-05-16] MEDS: MIDODRINE 5 MG TAB NGT ×3 (09:02→17:00)
[2018-05-16] MEDS: morphine 2 MG INJ IV (09:04)
[2018-05-16] MEDS: BALSAM PERU/CASTOR OIL 60 GM TUBE TOP (09:05)
[2018-05-16] MEDS: MUPIROCIN 2% 22 GM OINT TOP (09:06)
[2018-05-16] MEDS: VITAMIN A & D 5 GM OINT PACKET TOP (09:06)
[2018-05-16] MEDS: LEVOFLOXACIN 500MG/D5W (PMX) 100 ML IVPB (12:25)
== END 2018-05-16 17:19 | disposition hospice, home (50) | DRG 870 ==
LOC: PP2 05-15 17:18 → E/R 17:18 → ICU 19:51
PROC: 0BH17EZ Insertion of Endotracheal Airway into Trachea, Via Natural or Artificial Opening (ICD-10-PCS; principal; 2018-04-25)
PROC: 5A1955Z Respiratory Ventilation, Greater than 96 Consecutive Hours (ICD-10-PCS; 2018-04-25)
PROC: 02H633Z Insertion of Infusion Device into Right Atrium, Percutaneous Approach (ICD-10-PCS; 2018-04-26)
PROC: 0W993ZX Drainage of Right Pleural Cavity, Percutaneous Approach, Diagnostic (ICD-10-PCS; 2018-04-27)
PROC: 0W9B3ZZ Drainage of Left Pleural Cavity, Percutaneous Approach (ICD-10-PCS; 2018-04-28)
DX: A41.9 Sepsis, unspecified organism (principal); J96.02 Acute respiratory failure with hypercapnia; J69.0 Pneumonitis due to inhalation of food and vomit; G92 Toxic encephalopathy; R65.21 Severe sepsis with septic shock; I50.43 Acute on chronic combined systolic (congestive) and diastolic (congestive) heart failure; J96.01 Acute respiratory failure with hypoxia; E44.1 Mild protein-calorie malnutrition; I13.0 Hypertensive heart and chronic kidney disease with heart failure and stage 1 through stage 4 chronic kidney disease, or unspecified chronic kidney disease; J43.9 Emphysema, unspecified; R13.10 Dysphagia, unspecified; I48.2 Chronic atrial fibrillation; I50.9 Heart failure, unspecified; N18.9 Chronic kidney disease, unspecified; F32.9 Major depressive disorder, single episode, unspecified; G40.909 Epilepsy, unspecified, not intractable, without status epilepticus; F41.9 Anxiety disorder, unspecified; Z66 Do not resuscitate; E03.9 Hypothyroidism, unspecified; D64.9 Anemia, unspecified; K59.00 Constipation, unspecified; Z79.82 Long term (current) use of aspirin
CPT/HCPCS: 31500; 36415; 36569; 36600; 70450; 71045; 71250; 76705; 76937; 76942; 80048; 80053; 80061; 80162; 80202; 81001; 82550; 82553; 82803; 82945; 82962; 83605; 83615; 83735; 83880; 84100; 84157; 84439; 84443; 84484; 85025; 85610; 87040; 87070; 87081; 87086; 87102; 87116; 88104; 88305; 89051; 92526; 92610; 93005; 93306; 93970; 94002; 94003; 94640; 94660; 94664; 94668; 94770; 96361; 96374; 99291-25